=== PATIENT | male | born 1955 | race Caucasian/White ===

== ENCOUNTER 2024-08-09 10:04 | Outpatient (AMB) | payer OTHER, SELFPAY ==
--- NOTE | 2024-08-09 10:05 | HO.NEPHOV_ITS ---
Vital Signs 08/09/24 10:08 Height 5 ft 2 in Weight 121 lb 4 oz BMI 22.2 BP 116/60 Blood Pressure Location Lt brachial Position Sitting Intake Visit Reasons: Previous Pt from [facility] Founding Partner Required: No Accompanied by: Self / Same As Patient Allergies No Known Allergies [No Known Allergies*] Allergy (Verified 08/09/24 10:08) HPI Comments Details: I had the pleasure of seeing Roderick in follow-up of his proteinuria and chronic kidney disease. He has diabetes mellitus for a long time and is on metformin. His blood sugars are fairly well regulated at home. His blood pressure is at goal on lisinopril. He has not had any blood work or urine studies recently, which he is going to repeat today. He has dyslipidemia and is on statins. He denies nausea, vomiting, chest pain, urinary symptoms, pedal edema or orthostatic symptoms. Has no history of any coronary artery disease, CVA, congestive heart failure, carotid stenosis, peripheral arterial disease or renal artery stenosis. He does not take any nonsteroidal anti-inflammatories and maintain good hydration. Currently he feels well. [facility] Medical History (Updated 08/09/24 @ 13:10 by Venkat Moscoso MD) Mixed hyperlipidemia Hearing loss Type 2 diabetes mellitus Amnesia Surgical History H/O hernia repair Family History (Updated 08/09/24 @ 10:11 by Alley Trinidad MA) Mother Diabetes Hypertension Social History (Updated 08/09/24 @ 10:08 by Alley Trinidad MA) Alcohol intake: never Patient Tobacco Use Status: Never used Tobacco Review of Systems Const All systems reviewed & are unremarkable except as noted in HPI and below Physical Exam Vital Signs: Last Vital Signs BP 116/60 08/09/24 10:08 BMI result Body Mass Index 22.2 Const General: comfortable and no acute distress Orientation/consciousness: patient oriented x3 HEENT Head: Yes normocephalic Mouth: Normal oral and palatal mucosa present Eyes EOM: EOMs intact bilaterally Neck Neck: Yes supple Resp Auscultation: clear to auscultation bilaterally Cardio Jugular venous distension: no JVD Rate: regular rate GI Palpation (GI): Soft to palpation Auscultation: normal bowel sounds General: Yes no CVA tenderness Back/Spine/Pelvis Back: no CVA tenderness Skin General skin exam: no rashes or lesions noted Neuro General: patient oriented x3 and moves all extremities Extrem General: Yes no pedal edema Results Reviewed Nephrology Results: No Data to Display Assessment & Plan Assessment & Plan (1) CKD stage 3a, GFR 45-59 ml/min: Code(s): N18.31 - Chronic kidney disease, stage 3a Category: Medical (2) Hypertension: Code(s): I10 - Essential (primary) hypertension Category: Medical Qualifiers: Hypertension type: primary hypertension Qualified Code(s): I10 - Essential (primary) hypertension (3) Proteinuria: Code(s): R80.9 - Proteinuria, unspecified Category: Medical Qualifiers: Proteinuria type: other Qualified Code(s): R80.8 - Other proteinuria Plan Roderick has CKD 3 and his renal functions had been stable. He has not had any blood work for some time which is going to be today. He has no history of any microscopic hematuria. He is a diabetic. He will be a great candidate for SGLT 2 inhibitor. His past renal ultrasound had been unremarkable. He has no orthostatic symptoms. He maintains good hydration and avoids nonsteroidal anti- inflammatories. I did not make any medication changes today. Follow-up lab work ordered. Further management is pending evolving data. Orders: Orders Blood Urea Nitrogen Today I10 - Essential (primary) hypertension, N18.31 - Chronic kidney disease, stage 3a Immunofixation Pnl, Serum Today I10 - Essential (primary) hypertension, N18.31 - Chronic kidney disease, stage 3a Protein Creatinine Ratio, Ur Today I10 - Essential (primary) hypertension, N18.31 - Chronic kidney disease, stage 3a Creatinine Today I10 - Essential (primary) hypertension, N18.31 - Chronic kidney disease, stage 3a Electrolytes Today I10 - Essential (primary) hypertension, N18.31 - Chronic kidney disease, stage 3a Calcium Today I10 - Essential (primary) hypertension, N18.31 - Chronic kidney disease, stage 3a Coding Level of Care Code Est Pt Level 4 (11741) Diagnoses CKD stage 3a, GFR 45-59 ml/min N18.31 Primary hypertension I10 Hypertension type: primary hypertension Other proteinuria R80.8 Proteinuria type: other
[2024-08-09 10:08] VITALS: BP 116/60; BMI 22.2
--- OUTSIDE RECORDS SUMMARY | 2024-08-09 10:10 | XMS_ITS ---
Author Organization [facility] Address [address] [place] [id number] Care Team Providers Care Training Technician Name Role Phone KAYLINNavdeepSALLY Primary Care Provider REASON FOR VISIT refill Medications Medication SIG (Take, Route, Frequency, Duration) Notes Start Date End Date Status one touch ultra blue in vitro strip - test blood sugar once a day for 100 days Active Encounters Encounter Location Date Provider Diagnosis [address] [address] 02/22/2024 SALLY LIMA Plan Of Treatment Medication Medication Name Sig Start Date Stop Date Notes one touch ultra blue in vitr o strip - test blood sugar once a day for 100 days Next Appt Details Provider Name:SALLY LIMA , 08/20/2024 11:00:00 AM, [address] [place] [address], [place], [address], Progress Notes * Roderick GARCIADOB:1955 (68 yo M)Acc No.[id number]:02/22/2024 Patient:?GARCIA, Roderick :1955???Age:68 Y???Sex:Male Address: [place] [address] * Refills? Refill one touch ultra blue in vitro strip strip, -, 100, test blood sugar, once a day, 100 days, Refills=3 * true * Date:? Generated for Printi ng/Fafabiolag/eTransmitting on:?08/09/2024 10:09 AM EST
--- OUTSIDE RECORDS SUMMARY | 2024-08-09 10:10 | XMS_ITS ---
Author Organization [facility] Address [address] [place] [address] Care Team Providers Care Chick Sexer Name Role Phone SALLY LIMA Primary Care Provider REASON FOR VISIT Refill Encounters Encounter Location Date Provider Diagnosis [address] [address] 02/16/2024 SALLY LIMA Plan Of Treatment Next Appt Details Provider Name:SALLY LIMA , 08/20/2024 11:00:00 AM, [address] [place] [address], [place], [address], Progress Notes * Roderick GARCIADOB:1955 (68 yo M)Acc No.[id number]:02/16/2024 Patient:?Hunter GARCIAiesha :1955???Age:68 Y???Sex:Male Address: [place] [address] * true * Date:? Generated for Thaii gabby/Jacqueline/eTransmitting on:?08/09/2024 10:10 AM EST
--- OUTSIDE RECORDS SUMMARY | 2024-08-09 10:10 | XMS_ITS ---
Author Organization [facility] Address [address] [place] [address] Care Team Providers Care Wood Stainer Name Role Phone SALLY LIMA Primary Care Provider REASON FOR VISIT Refill Medications Medication SIG (Take, Route, Fr equency, Duration) Notes Start Date End Date Status metFORMIN HCl 1000 MG 1 tablet with a me al Orally twice a day for 90 days Active Encounters Encounter Location Date Provider Diagnosis [address] [address] 02/16/2024 SALLY LIMA Plan Of Treatment Medication Medication Name Sig Start Date Stop Date Notes metFORMIN HCl 1000 MG 1 tablet with a me al Orally twice a day for 90 days Next Appt Details Provider Name:SALLY LIMA , 08/20/2024 11:00:00 AM, [address] [place] [address], [place], [address], Progress Notes * Roderick GARCIADOB:1955 (68 yo M)Acc No.[id number]:02/16/2024 Patient:?GARCIAHunter Soniesha :1955???Age:68 Y???Sex:Male Address: [place] [address] * Refills? Refill metFORMIN HCl Tablet, 1000 MG, Orally, 180, 1 tablet with a meal, twice a day, 90 days, Refills=3 * true * Date:? Generated for Thaii gabby/Willieg/eTransmitting on:?08/09/2024 10:10 AM EST
--- OUTSIDE RECORDS SUMMARY | 2024-08-09 10:10 | XMS_ITS | Patient Health Record ---
Author Organization [facility] Address [address] [place] [address] Care Team Providers Care Cryptologic Technician Operator/Analyst Name Role Phone SALLY LIMA Primary Care Provider [phone] Allergies No Known Allergies Reason For Referral No Information Medications Medication SIG (Take, Route, Frequency, Duration) Notes Start Date End Date Status Lisinopril 2.5 MG 1 tablet Orally Once a day for 90 days 12/17/2020 Active metFORMIN HCl 1000 MG 1 tablet with a me al Orally twice a day for 90 days Active Ibuprofen 800 MG 1 tablet with food o r milk as needed Orally Three times a day for 30 days Active one touch ultra blue in vitro strip - test blood sugar once a day for 100 days Active Crestor 20 MG 1 tablet Orally Once a day for 90 days Active Albuterol Sulfate HFA 108 (90 Base) MCG/ACT 1 puff as needed Inhalation every 4 hrs for 30 days 12/05/2020 Active OneTouch Delica Plus Lancets 1 lancet once a day for 100 days Active Immunizations Vaccine Route Administration Date Status Comme nts COVID 19 Pfizer Unknown 01/10/2021 Administered COVID 19 Pfizer Unknown 01/31/2021 Administered Flu High-Dose Unknown 06/06/2021 Administered Flu Shot Unknown 06/24/2017 Administered High Dose Fluzone +65 IM Intramuscular 06/23/2022 Administ ered Influenza, high dose seasonal Unknown 06/06/2021 Administered Influenza, seasonal, injectable (split), for 3 yrs and up Unknown 05/05/2016 Administered Prevnar 20 Unknown 04/27/2022 Administered Shingrix Unknown 06/06/2022 Administered Social History Tobacco Use: Social History Observation Description Date Details (start date - stop date) Never Smoker NA - NA Tobacco Use/Smoking Question Answer Notes Are you a nonsmoker Alcohol Screen (Audit-C) Question Answer Notes Did you have a drink containing alcohol in the p ast year? No Points 0 Interpretation Negative Problems Problem Type SNOMED Code ICD Code Onset Dates Problem Status W/U Status Risk Notes Problem Disorder due to type 2 diabetes mellitus (417000266) Type 2 diabetes mellitus with unspecified complications (E11.8) Active confirmed Problem Mixed hyperlipidemia (293685312) Mixed hyperlipidemia (E78.2) Active confirmed Problem Hearing loss (43668922) Unspecified hearing loss, unspecified ear (H91.90) Active confirmed Problem Chronic kidney disease (879140551) Chronic kidney disease, unspecified (N18.9) Active confirmed Problem Amnesia (95957217) Complaints of memory disturbance (R41.3) Active confirmed Problem History of disease caused by Severe acute respiratory syndrome coronavirus 2 (situation) ([id number] 05) Personal history of COVID-19 (Z86.16) Active confirmed Vital Signs Heart Rate 61 /min 01/25/2024 Temperature 97 degrees Fahrenheit 01/25/2024 Blood pressure diastolic 70 mm Hg 01/25/2024 Oximetry 98 % 01/25/2024 Height 61 in 01/25/2024 Blood pressure systolic 128 mm Hg 01/25/2024 Weight 120.8 lbs 01/25/2024 BMI 22.82 kg/m2 01/25/2024 Encounters Encounter Location Date Provider Diagnosis [address] [address] 01/25/2024 [facility] Type 2 diabetes kurt itus with unspecified complications E11.8 ; Mixed hyperlipidemia E78.2 ; Chronic kidney disease, unspecified N18.9 and Encounter for screening for malignant neoplasm of prostate Z12.[address] [place] [address] 11/18/[address] [place] [address] 02/16/[address] [place] [address] 02/16/[address] [place] [address] 02/22/2024 SALLY LIMA Assessments Encounter Date Diagnosis (ICD Code) Assessment Notes Treatment Notes Treatment Clinical Notes Section Notes 01/25/2024 Type 2 diabetes mellitus with unspecified complications (ICD-10 - E11.8) Mr. Garcia is a 68 year old gentleman with DM2, hyperlipidemia, proteinuria here for follow up. Plan is as follows: Type II diabetes mellitus. He is on right medications. He has seen his slot shift manager in the past 1 year. Foot care discussed. Check A1c Hyperlipidemia. Last lipid panel within normal limits. Continue on Crestor 20 MG at night. Proteinuria. He is on Lisinopril 2.5 MG daily. Advised appropriate hydration. Chronic kidney disease stage 3. He does not appear to be in volume overload. Advised appropriate hydration. Avoid NSAIDs. He will see nephrology. Screening blood work before next appointment. General health concerns discussed with patient. Scribe services used to formulate this note under HIPAA compliance and under [place] law mandated for scribe services. Patient aware of service. Verbal consent and written consent taken from the patient. Patient understands and verbalizes understanding of the scribes services and all questions answered regarding scribes services. Patient agrees to use of scribes services. 01/25/2024 Mixed hyperlipidemia (ICD-10 - E78.2) Mr. Garcia is a 68 year old gentleman with DM2, hyperlipidemia, proteinuria here for follow up. Plan is as follows: Type II diabetes mellitus. He is on right medications. He has seen his slot shift manager in the past 1 year. Foot care discussed. Check A1c Hyperlipidemia. Last lipid panel within normal limits. Continue on Crestor 20 MG at night. Proteinuria. He is on Lisinopril 2.5 MG daily. Advised appropriate hydration. Chronic kidney disease stage 3. He does not appear to be in volume overload. Advised appropriate hydration. Avoid NSAIDs. He will see nephrology. Screening blood work before next appointment. General health concerns discussed with patient. Scribe services used to formulate this note under HIPAA compliance and under [place] law mandated for scribe services. Patient aware of service. Verbal consent and written consent taken from the patient. Patient understands and verbalizes understanding of the scribes services and all questions answered regarding scribes services. Patient agrees to use of scribes services. 01/25/2024 Chronic kidney disease, unspecified (ICD-10 - N18.9) Mr. Garcia is a 68 year old gentleman with DM2, hyperlipidemia, proteinuria here for follow up. Plan is as follows: Type II diabetes mellitus. He is on right medications. He has seen his slot shift manager in the past 1 year. Foot care discussed. Check A1c Hyperlipidemia. Last lipid panel within normal limits. Continue on Crestor 20 MG at night. Proteinuria. He is on Lisinopril 2.5 MG daily. Advised appropriate hydration. Chronic kidney disease stage 3. He does not appear to be in volume overload. Advised appropriate hydration. Avoid NSAIDs. He will see nephrology. Screening blood work before next appointment. General health concerns discussed with patient. Scribe services used to formulate this note under HIPAA compliance and under [place] law mandated for scribe services. Patient aware of service. Verbal consent and written consent taken from the patient. Patient understands and verbalizes understanding of the scribes services and all questions answered regarding scribes services. Patient agrees to use of scribes services. 01/25/2024 Encounter for screening for malignant neoplasm of prostate (ICD-10 - Z12.5) Mr. Garcia is a 68 year old gentleman with DM2, hyperlipidemia, proteinuria here for follow up. Plan is as follows: Type II diabetes mellitus. He is on right medications. He has seen his slot shift manager in the past 1 year. Foot care discussed. Check A1c Hyperlipidemia. Last lipid panel within normal limits. Continue on Crestor 20 MG at night. Proteinuria. He is on Lisinopril 2.5 MG daily. Advised appropriate hydration. Chronic kidney disease stage 3. He does not appear to be in volume overload. Advised appropriate hydration. Avoid NSAIDs. He will see nephrology. Screening blood work before next appointment. General health concerns discussed with patient. Scribe services used to formulate this note under HIPAA compliance and under [place] law mandated for scribe services. Patient aware of service. Verbal consent and written consent taken from the patient. Patient understands and verbalizes understanding of the scribes services and all questions answered regarding scribes services. Patient agrees to use of scribes services. Plan Of Treatment Pending Test Test Name Order Date HEMOGLOBIN A1C WITH EST GLUCOSE 06/23/20 Future Test Test Name Order Date COMPREHENSIVE METABOLIC PANEL 06/23/2022 HEMOGLOBIN A1C WITH EST GLUCOSE 06/23/20 22 LIPID PANEL 06/23/2022 MICROALBUMIN, URINE 06/23/2022 PSA, SCREEN 06/23/2022 HEMOGLOBIN A1C WITH EST GLUCOSE 12/24/19 23 PSA, SCREEN 12/23/2022 Hemoglobin [id number] 01/25/2024 Albumin/Creatinine Ratio,Urine-[id number] Lipid Panel-[id number] 01/25/2024 Comp. Metabolic Panel [id number] 2023 PSA (Serial Monitor)-[id number] 01/25/2024 Next Appt Details Provider Name:SALLY LIMA , 08/20/2024 11:00:00 AM, [address] [place] [address], [place], [address], Insurance Providers Payer Name Payer Address Payer Phone Subscriber Number Group Number Insured Name Patient Relationship to Insured Coverage Start Date Coverage End Date [employer] Preferred [address] [place] [address] [id number] Roderick Garcia Self - patient is the insured 2 Medical (General) History Medical History History ICD Code type II diabetes hyperlipidemia Personal history of COVID-19 hearing loss, no aids Surgical History Surgery Date(Month/Year) inguinal hernia repair right
== END 2024-08-09 10:24 | disposition home or self-care (01) ==
PROVIDERS: PCP Hospitalist; Visit Provider Internal Medicine Nephrology
DX: N18.31 Chronic kidney disease, stage 3a (principal); I10 Essential (primary) hypertension; R80.8 Other proteinuria
CPT/HCPCS: 99214

== ENCOUNTER 2025-02-07 10:24 | Outpatient (AMB) | payer OTHER, SELFPAY ==
--- NOTE | 2025-02-07 10:27 | HO.NEPHOV_ITS ---
Vital Signs 02/07/25 10:34 Height 5 ft 2 in Weight 117 lb 2 oz BMI 21.4 BP 120/60 Blood Pressure Location Lt brachial Position Sitting Pulse 70 Pulse Source Pulse Oximeter Pulse Oximetry (%) 96 Oxygen Delivery Method Room Air Intake Visit Reasons: 6m follow up-LVM Book Coverer Required: No Accompanied by: Self / Same As Patient Allergies No Known Allergies (No Known Allergies*) Allergy (Verified 02/07/25 10:34) HPI Comments Details: I had the pleasure of seeing Roderick in follow-up of his proteinuria and chronic kidney disease. He has diabetes mellitus for a long time and is on metformin. His blood sugars are fairly well regulated at home. His blood pressure is at goal on lisinopril. He has not had any blood work or urine studies recently, which he is going to repeat today. He has dyslipidemia and is on statins. He denies nausea, vomiting, chest pain, urinary symptoms, pedal edema or orthostatic symptoms. Has no history of any coronary artery disease, CVA, congestive heart failure, carotid stenosis, peripheral arterial disease or renal artery stenosis. He does not take any nonsteroidal anti-inflammatories and maintain good hydration. Currently he feels well. [facility] Medical History (Updated 08/09/24 @ 13:10 by Venkat Moscoso MD) Mixed hyperlipidemia Hearing loss Type 2 diabetes mellitus Amnesia Surgical History H/O hernia repair Family History (Updated 08/09/24 @ 10:11 by Alley Trinidad MA) Mother Diabetes Hypertension Social History (Updated 08/09/24 @ 10:08 by Alley Trinidad MA) Alcohol intake: never Patient Tobacco Use Status: Never used Tobacco Review of Systems Const All systems reviewed & are unremarkable except as noted in HPI and below Physical Exam Const General: comfortable and no acute distress Orientation/consciousness: patient oriented x3 HEENT Head: Yes normocephalic Mouth: Normal oral and palatal mucosa present Eyes EOM: EOMs intact bilaterally Neck Neck: Yes supple Resp Auscultation: clear to auscultation bilaterally Cardio Jugular venous distension: no JVD Rate: regular rate GI Palpation (GI): Soft to palpation Auscultation: normal bowel sounds General: Yes no CVA tenderness Back/Spine/Pelvis Back: no CVA tenderness Skin General skin exam: no rashes or lesions noted Neuro General: patient oriented x3 and moves all extremities Extrem General: Yes no pedal edema Assessment & Plan Assessment & Plan (1) CKD stage 3a, GFR 45-59 ml/min: Code(s): N18.31 - Chronic kidney disease, stage 3a Category: Medical (2) Hypertension: Code(s): I10 - Essential (primary) hypertension Category: Medical Qualifiers: Hypertension type: primary hypertension Qualified Code(s): I10 - Essential (primary) hypertension (3) Proteinuria: Code(s): R80.9 - Proteinuria, unspecified Category: Medical Qualifiers: Proteinuria type: other Qualified Code(s): R80.8 - Other proteinuria Plan Roderick has CKD 3 and his renal functions had been stable. He has no history of any microscopic hematuria. He is a diabetic. I started him on Jardiance 10 mg daily. He was asked to cut back on metformin if his blood sugars drop. I shall consider maximizing Jardiance and will consider getting him off metformin , if possible. His past renal ultrasound had been unremarkable. He has no orthostatic symptoms. He maintains good hydration and avoids nonsteroidal anti- inflammatories. Follow-up lab work ordered. Further management is pending evolving data. Orders: Orders Electrolytes 2 Months I10 - Essential (primary) hypertension, N18.31 - Chronic kidney disease, stage 3a, R80.8 - Other proteinuria Blood Urea Nitrogen 2 Months I10 - Essential (primary) hypertension, N18.31 - Chronic kidney disease, stage 3a, R80.8 - Other proteinuria Hemoglobin A1c 5 Months I10 - Essential (primary) hypertension, N18.31 - Chronic kidney disease, stage 3a, R80.8 - Other proteinuria Electrolytes 5 Months I10 - Essential (primary) hypertension, N18.31 - Chronic kidney disease, stage 3a, R80.8 - Other proteinuria Blood Urea Nitrogen 5 Months I10 - Essential (primary) hypertension, N18.31 - Chronic kidney disease, stage 3a, R80.8 - Other proteinuria Creatinine 5 Months I10 - Essential (primary) hypertension, N18.31 - Chronic kidney disease, stage 3a, R80.8 - Other proteinuria Creatinine 2 Months I10 - Essential (primary) hypertension, N18.31 - Chronic kidney disease, stage 3a, R80.8 - Other proteinuria Medications: New empagliflozin (Jardiance) 10 mg PO DAILY 30 tabs 10RF Coding Level of Care Code Est Pt Level 4 (85609) Diagnoses CKD stage 3a, GFR 45-59 ml/min N18.31 Primary hypertension I10 Hypertension type: primary hypertension Other proteinuria R80.8 Proteinuria type: other
[2025-02-07 10:34] VITALS: BP 120/60; PULSE 70; O2SAT 96; BMI 21.4
== END 2025-02-07 10:59 | disposition home or self-care (01) ==
LOC: HO.HKAS 10:25
PROVIDERS: PCP Hospitalist; Visit Provider Internal Medicine Nephrology
DX: N18.31 Chronic kidney disease, stage 3a (principal); I10 Essential (primary) hypertension; R80.8 Other proteinuria
CPT/HCPCS: 99214

== ENCOUNTER 2025-07-23 11:49 | Outpatient (AMB) | payer OTHER, SELFPAY ==
--- NOTE | 2025-07-23 11:55 | HO.NEPHOV_ITS ---
Vital Signs 07/23/25 11:57 Height 5 ft 2 in Weight 122 lb 2 oz BMI 22.3 BP 120/60 Blood Pressure Location Lt brachial Position Sitting Pulse 66 Pulse Source Pulse Oximeter Pulse Oximetry (%) 98 Oxygen Delivery Method Room Air Intake Visit Reasons: 5mon follow-up w/labs-Mailbox Full Sailing Instructor Required: No Accompanied by: Self / Same As Patient Allergies No Known Allergies (No Known Allergies*) Allergy (Verified 07/23/25 11:57) HPI Comments Details: I had the pleasure of seeing Roderick in follow-up of his proteinuria and chronic kidney disease. He has diabetes mellitus for a long time and is on metformin. His blood sugars are fairly well regulated at home. His blood pressure is at goal on lisinopril. He has not had any blood work or urine studies recently, which he is going to repeat today. He has dyslipidemia and is on statins. He denies nausea, vomiting, chest pain, urinary symptoms, pedal edema or orthostatic symptoms. Has no history of any coronary artery disease, CVA, congestive heart failure, carotid stenosis, peripheral arterial disease or renal artery stenosis. He does not take any nonsteroidal anti-inflammatories and maintain good hydration. Currently he feels well. [facility] Medical History (Updated 08/09/24 @ 13:10 by Venkat Moscoso MD) Mixed hyperlipidemia Hearing loss Type 2 diabetes mellitus Amnesia Surgical History H/O hernia repair Family History Mother Diabetes Hypertension Social History Alcohol intake: never Patient Tobacco Use Status: Never used Tobacco Review of Systems Const All systems reviewed & are unremarkable except as noted in HPI and below Physical Exam Const General: comfortable and no acute distress Orientation/consciousness: patient oriented x3 HEENT Head: Yes normocephalic Mouth: Normal oral and palatal mucosa present Eyes EOM: EOMs intact bilaterally Neck Neck: Yes supple Resp Auscultation: clear to auscultation bilaterally Cardio Jugular venous distension: no JVD Rate: regular rate GI Palpation (GI): Soft to palpation Auscultation: normal bowel sounds General: Yes no CVA tenderness Back/Spine/Pelvis Back: no CVA tenderness Skin General skin exam: no rashes or lesions noted Neuro General: patient oriented x3 and moves all extremities Extrem General: Yes no pedal edema Assessment & Plan Assessment & Plan (1) CKD stage 3a, GFR 45-59 ml/min: Code(s): N18.31 - Chronic kidney disease, stage 3a Category: Medical (2) Proteinuria: Code(s): R80.9 - Proteinuria, unspecified Category: Medical Qualifiers: Proteinuria type: other Qualified Code(s): R80.8 - Other proteinuria (3) Hypertension: Code(s): I10 - Essential (primary) hypertension Category: Medical Qualifiers: Hypertension type: primary hypertension Qualified Code(s): I10 - Essential (primary) hypertension Plan Roderick has CKD 3 and his renal functions had been stable. He has no history of any microscopic hematuria. He is a diabetic. I started him on Jardiance which he can continue at 25 mg daily. His past renal ultrasound had been unremarkable. He has no orthostatic symptoms. He maintains good hydration and avoids nonsteroidal anti-inflammatories. Follow-up lab work ordered. Orders: Orders Hemoglobin A1c 6 Months I10 - Essential (primary) hypertension, N18.31 - Chronic kidney disease, stage 3a, R80.8 - Other proteinuria Calcium 6 Months I10 - Essential (primary) hypertension, N18.31 - Chronic kidney disease, stage 3a, R80.8 - Other proteinuria Protein Creatinine Ratio, Ur 6 Months I10 - Essential (primary) hypertension, N18.31 - Chronic kidney disease, stage 3a, R80.8 - Other proteinuria Creatinine 6 Months I10 - Essential (primary) hypertension, N18.31 - Chronic kidney disease, stage 3a, R80.8 - Other proteinuria Blood Urea Nitrogen 6 Months I10 - Essential (primary) hypertension, N18.31 - Chronic kidney disease, stage 3a, R80.8 - Other proteinuria Electrolytes 6 Months I10 - Essential (primary) hypertension, N18.31 - Chronic kidney disease, stage 3a, R80.8 - Other proteinuria Coding Level of Care Code Est Pt Level 4 (64569) Diagnoses CKD stage 3a, GFR 45-59 ml/min N18.31 Other proteinuria R80.8 Proteinuria type: other Primary hypertension I10 Hypertension type: primary hypertension
[2025-07-23 11:57] VITALS: BP 120/60; PULSE 66; O2SAT 98; BMI 22.3
--- OUTSIDE RECORDS SUMMARY | 2025-07-23 13:59 | XMS_ITS | Clinical Summary ---
Author Organization [facility] Address [address] [place] [address] Phone Care Team Providers Care Senior Account Director Name Role Phone Nadya Franco MD Primary Care Provider [phone] Allergies No known active allergies Medications metFORMIN (GLUCOPHAGE) 1000 MG tablet Take 1 tablet by mouth 2 (two) times a day Active rosuvastatin (CRESTOR) 20 MG tablet Take 1 tablet by mouth 1 (one) time each day Active lisinopril 2.5 MG tablet Take 1 tablet by mouth 1 (one) time each day 12/17/2020 Active Active Problems Problem Noted Date Diagnosed Date Stage 3a chronic kidney disease 04/07/2023 Proteinuria 02/24/2021 Chronic kidney disease 02/11/2021 Resolved Problems Problem Noted Date Diagnosed Date Resolved Date Amnesia 02/11/2021 02/24/2021 Disorder due to type 2 diabetes mellitus 02/11/2021 02/24/2021 Hearing loss 02/11/2021 02/24/2021 Mixed hyperlipidemia 02/11/2021 021 Personal history of COVID-19 02/11/2021 02/24/2021 Immunizations Immunization Administration Dates Next Due Influenza Split High Dose Preservative Free IM 1 Family History Medical History Relation Comments Diabetes Mother Hypertension Mother Relation Status Comments Mother Social History Tobacco Use Types Packs/Day Years Used Date Smoking Tobacco: Never Smokeless Tobacco: Never Tobacco Cessation:Counseling Given: Not Answered Alcohol Use Standard Drinks/Week Comments Never 0 (1 standard drink = 0.6 oz pur e alcohol) Sex and Gender Information Value Date Recorded Sex Assigned at Not on file Legal Sex Male 11:59 AM EDT Gender Identity Not on file Sexual Orientation Not on file Last Filed Vital Signs Vital Sign Reading Time Taken Comments Blood Pressure 130/60 04/07/2023 2:09 PM EDT Pulse 61 04/07/2023 2:09 PM EDT Temperature - - Respiratory Rate - - Oxygen Saturation 98% 06/09/2021 1:21 PM EDT Inhaled Oxygen Concentration - - Weight 54.4 kg (120 lb) 04/07/2023 2:09 PM EDT Height - - Body Mass Index - - Plan of Treatment Health Maintenance Due Date Last Done Comments Pneumococcal Vaccine: 50+ Ye ars (1 of 2 - PCV) 1972 Colorectal Cancer Screening: Annual FOBT 2002 Colorectal Cancer Screening: Colonoscopy 2002 Colorectal Cancer Screening: Sigmoidoscopy 2002 Influenza Vaccine (#1) 2025 06/06/2021 Hepatitis B Vaccine Aged Out No longe r eligible based on patient's age to complete this topic Insurance [employer] Care Teams Senior Account Director Relationship Specialty Start Date End Date Nadya Franco MD [address] [place] [id number] PCP - General Internal Medicine 01/14/21
== END 2025-07-23 12:11 | disposition home or self-care (01) ==
LOC: HO.HKAS 11:49
PROVIDERS: PCP Hospitalist; Visit Provider Internal Medicine Nephrology
DX: N18.31 Chronic kidney disease, stage 3a (principal); R80.8 Other proteinuria; I10 Essential (primary) hypertension
CPT/HCPCS: 99214